=== PATIENT | male | born 1975 | race Caucasian/White ===

== ENCOUNTER 2020-04-22 09:48 | Emergency (ER) | payer MEDICARE, SELFPAY ==
[2020-04-22] VITALS (11 sets, daily range): BP systolic 138–196; BP diastolic 46–93; PULSE 74–114; RESP 16–18; TEMP 37.6–38.2; O2SAT 95–100; BMI 27.0
--- NOTE | 2020-04-22 10:19 | XR_ITS ---
WS: [id number] PORTABLE CHEST HISTORY: dyspnea/cough COMPARISON: None available. Lungs are clear and well expanded. No pleural effusion or pneumothorax. Cardiac size: Normal. Mediastinum/Aorta: Normal mediastinum. No osseous abnormality seen. XR/XR chest 1V portable [id number] IMPRESSION: Unremarkable portable chest.
--- NOTE | 2020-04-22 10:19 | USCV_ITS ---
Rufus Lyman Age: 44 Gender: M : 1975 Exam Date: 04/22/2020 10:23 Ordering Phys: Apolinar Reagan DO Technologist: Cary Kearns Exam Location: [facility] [place]_ Indication: TRANSPLANTED KIDNEY LIES IN RT OF MIDLINE PELVIS Aortic Velocity @ SMA (cm/s) FINDINGS No comparison. Small echogenic cheesh-na kidneys. Transplanted kidney right pelvis is normal size and echogenicity. No hydronephrosis. Good systolic and diastolic velocities. No adjacent fluid collections. CONCLUSIONS No abnormality transplanted kidney by ultrasound. Dr. Tati Mcmillan DO Edited by: CV Knee Bolter (Electronically Signed) Final Date: 22 April 2020 11:43 Amended: 23 April 2020 08:10 C
--- NOTE | 2020-04-22 10:19 | ECG_ITS ---
[facility] Test Date: 2020-04-22 Pat Name: Rufus Lyman Department: Room: Gender: Male [employer]ator [employer]: : 1975 Requested By: Apolinar Nettles Order Number: [id number] Ekaterina MD: Shilo Nj M.D. Measurements Intervals [place] Rate: 107 P: 53 AK: 143 QRS: 58 QRSD: 75 T: 58 QT: 296 QTc: 395 Interpretive Statements SINUS TACHYCARDIA POSSIBLE LEFT ATRIAL ENLARGEMENT [-0.1mV P WAVE IN V1/V2] ABNORMAL RHYTHM ECG No previous ECG available for comparison Electronically Signed On 04-23-2020 16:24:08 CDT by Shilo Nj M.D. [email or web address]
[2020-04-22 10:33] LABS: Basophils # 0.1 10^3/uL (0.0-0.1); Basophils % 0.2 %; Hematocrit 49.4 % (42.0-52.0); Hemoglobin 16.6 g/dL (11.7-16.6); Lymphocytes # 1.2 10^3/uL (0.8-4.8); Lymphocytes % 4.5 %; Mean Corpuscular HGB Conc 33.6 g/dL (30.0-36.0); Mean Corpuscular Hemoglobin 32.5 pg (28.0-34.0); Mean Corpuscular Volume 96.9 fL (80-94); Mean Platelet Volume 11.6 fL (7.4-10.4); Monocytes # 2.3 10^3/uL (0.2-0.9); Monocytes % 8.9 %; Neutrophils # 21.77 10^3/uL (1.8-7.7); Nucleated Red Blood Cells % 0 %; Platelet Count 154 10^3/cmm (130-400); Red Cell Distribution Width 12.9 % (12.1-15.1); White Blood Count 25.6 10^3/uL (4.0-10.0)
[2020-04-22 10:40] LABS: Lactic Sepsis W/Reflex 1.5 mmol/L (0.5-2.2)
[2020-04-22 10:41] LABS: Alanine Aminotransferase 22 U/L (0-41); Albumin Level 4.2 g/dL (3.5-5.2); Alkaline Phosphatase 94 IU/L (40-130); Aspartate Amino Transferase 26 U/L (0-40); Blood Urea Nitrogen 22 mg/dL (6-20); Calcium 9.1 mg/dL (8.5-10.5); Carbon Dioxide 21 mmol/L (22-29); Chloride 97 mmol/L (98-107); Creatine Phosphokinase 74 U/L (39-308); Globulin 3.2 g/dL (1.3-4.6); Glucose 171 mg/dL (65-115); Lipase 25 U/L (13-60); Osmolality Calculated 273 mOsm/kg (285-295); Sodium 131 mmol/L (136-145); Total Bilirubin 1.2 mg/dL (0.15-1.2); Total Protein 7.4 g/dL (6.6-8.7)
--- NOTE | 2020-04-22 10:52 | ED_ITS ---
HPI - Abdominal Pain General: Chief Complaint: Abdominal Pain Stated Complaint: pain post kidney & pancreas transplant Time Seen by Provider: 04/22/20 09:58 History of Present Illness: HPI narrative: 44-year-old male comes in complaining of right lower quadrant pain. He is a renal transplant patient and in his right lower quadrant where his kidney and pancreas are out evidently. He is not noticed any hematuria he has had a couple of episodes of diarrhea. Is not had any antibiotics in the last month he had several episodes of vomiting and he has been running a fever at home this began approximately 3 days ago on Wednesday. Patient denies any respiratory symptoms no known exposure to anybody with COVID that he is aware of. MD elicited complaint: abdominal pain Pertinent past history: other (Previous renal transplant with donor kidney in the right lower quadrant) Onset (ago): day(s) Pain Consistency: constant Location: RLQ Severity: moderate Quality: cramping and stabbing Radiation: RLQ Migration to: no migration Exacerbating factors: movement Relieving factors: nothing Associated Symptoms: Reports no associated symptoms; Denies bloating, chills, coffee ground emesis, constipation, diarrhea, dysuria, fever(s), hematochezia, hematemesis, melena, nausea and vomiting Review of Systems Const: Denies: fever(s), chills, body aches, change in appetite, fatigue or malaise ENMT: Denies: throat pain, ear or mastoid pain, nasal discharge or nasal congestion Card: Denies: chest pain, edema, dyspnea on exertion or orthopnea Resp: Denies: dyspnea, productive cough or non-productive cough GI: Denies: abdominal pain, nausea, vomiting, hematemesis, coffee ground emesis, diarrhea, constipation, bloating, hematochezia or melena : Denies: flank pain, dysuria, urinary frequency or urinary urgency Skin/Breast: Denies: rash or pruritus PFSH ED PFSH: Medical History (Updated 04/23/20 @ 08:54 by Apolinar Reagan DO) Blind Diabetes Fistula Surgical History (Updated 04/22/20 @ 14:32 by Apolinar Reagan DO) History of eye surgery History of kidney transplant History of pancreas transplant Physical Exam Const: COMMON NORMALS: no acute distress GENERAL APPEARANCE: cooperative and comfortable ORIENTATION/CONSCIOUSNESS: Yes awake, Yes oriented to person, Yes oriented to place and Yes oriented to time HENMT: COMMON NORMALS: normocephalic, atraumatic, hearing grossly normal bilat erally, external ears normal, EAC's normal, TM's normal bilaterally, Normal nasal mucous membranes and turbinates present and oropharynx normal HEAD & SCALP: normocephalic and atraumatic NOSE: Normal nasal mucous membranes and turbinates present EXTERNAL EAR: Yes external ears normal EXTERNAL AUDITORY CANAL: EAC's normal TYMPANIC MEMBRANE: TM's normal bilaterally Eye: COMMON NORMALS: Equal, round and reactive pupils present, EOMs intact bilaterally, conjunctivae normal and no scleral icterus CONJUNCTIVA: Yes conjunctivae normal PUPIL: Yes Equal, round and reactive pupils present Neck/C-Spine: COMMON NORMALS: full ROM, no lymphadenopathy, supple and no JVD Lymph: LYMPHATIC: no lymphadenopathy noted and no lymphedema noted Resp: COMMON NORMALS: normal respiratory effort, No retractions, No use of accessory muscles and clear to auscultation bilaterally AUSCULTATION: clear to auscultation bilaterally Cardio: COMMON NORMALS: no JVD, regular rate, regular rhythm and No murmurs present (Cardio) RATE: regular rate RHYTHM: regular rhythm GI: PALPATION: Yes Tenderness to palpation present (GI) Details: RLQ and No Guarding due to palpation present (GI) Extremity: COMMON NORMALS: normal to inspection, capillary refill normal, no clubbing, cyanosis or edema, no calf tenderness and no pedal edema Neuro: SENSORIUM/ORIENTATION: Yes oriented to person, Yes oriented to place and Yes oriented to time Skin: COMMON NORMALS: no rashes or lesions noted GENERAL SKIN EXAM: no rashes or lesions noted Course Vital Signs: Vital signs: Vital Signs Temperature 99.7 F H 04/22/20 19:25 Pulse Rate 114 H 04/22/20 20:25 Respiratory Rate 16 04/22/20 20:25 Blood Pressure 142/46 04/22/20 20:25 Pulse Oximetry 95 04/22/20 20:25 MDM - Abdominal Pain MDM Narrative: Medical decision making narrative: Ultrasound of the kidney is negative patient has exquisite tenderness over the transplant kidney in the right lower quadrant in addition a white count is 25.6 urine shows signs of infection. Believe he does have a pyelonephritis of his donor kidney is temp of 100.8 in addition to all the other factors. I started him on Rocephin cultures have been done have talked with our local hospitalist believe that given his transplant status would be better for him to be transferred back to [facility] for care by the transplant team, I would agree with that assessment. Discussed with the patient he is amenable to being transferred to [facility]. We have called [facility] and discussed with their transplant team they will accept him on transfer. They asked that we continue the Rocephin also asked that we do a CT without contrast to further evaluate. Lab Data: Labs: Lab Results 04/22/20 04/22/20 04/22/20 Range/Units 10:12 10:12 10:12 WBC 25.6 H (4.0-10.0) 10^3/ uL RBC 5.10 (4.1-5.3) 10^6/u L Hgb 16.6 (11.7-16.6) g/dL Hct 49.4 (42.0-52.0) % MCV 96.9 H (80-94) fL MCH 32.5 (28.0-34.0) pg MCHC 33.6 (30.0-36.0) g/dL RDW 12.9 (12.1-15.1) % Plt Count 154 (130-400) 10^3/c mm MPV 11.6 H (7.4-10.4) fL Neut % (Auto) 85.0 % Lymph % (Auto) 4.5 % [place] % (Auto) 8.9 % Eos % (Auto) 0.0 % Baso % (Auto) 0.2 % Neut # (Auto) 21.77 H (1.8-7.7) 10^3/u L Lymph # (Auto) 1.2 (0.8-4.8) 10^3/u L [place] # (Auto) 2.3 H (0.2-0.9) 10^3/u L Eos # (Auto) 0.0 (0.0-0.8) 10^3/u L Baso # (Auto) 0.1 (0.0-0.1) 10^3/u L Nucleated RBC % (a uto) 0 % Nucleated RBCs # 0.0 /100WBC Sodium 131 L (136-145) mmol/L Potassium 4.1 (3.5-5.1) mmol/L Chloride 97 L (98-107) mmol/L Carbon Dioxide 21 L (22-29) mmol/L Anion Gap 17.1 (5-19) BUN 22 H (6-20) mg/dL Creatinine 1.3 H (0.7-1.2) mg/dL GFR Calculation 60.0 L (90-130) mL/min Glucose 171 H (65-115) mg/dL Calculated Osmolal ity 273 L (285-295) mOsm/k g Lactic Acid 1.5 (0.5-2.2) mmol/L Calcium 9.1 (8.5-10.5) mg/dL Total Bilirubin 1.2 (0.15-1.2) mg/dL AST 26 (0-40) U/L ALT 22 (0-41) U/L Alkaline Phosphata se 94 (40-130) IU/L Creatine Kinase 74 (39-308) U/L Total Protein 7.4 (6.6-8.7) g/dL Albumin 4.2 (3.5-5.2) g/dL Globulin 3.2 (1.3-4.6) g/dL Amylase (28-100) U/L Lipase 25 (13-60) U/L Urine Color (Yellow) Urine Appearance (CLEAR) Urine pH (5-7) Ur Specific Gravit y (1.005-1.030) Urine Protein (Negative) Urine Glucose (UA) (Normal) Urine Ketones (Negative) Urine Blood (Negative) Urine Nitrate (Negative) Urine Bilirubin (NEGATIVE) Urine Urobilinogen (Negative) mg/dL Ur Leukocyte Natty ase (Negative) Urine RBC (0-2) /hpf Urine WBC (0-5) /hpf Ur Squamous Epith Cells (0-5) Ur Transition Epit h Cell /hpf Amorphous Sediment Urine Bacteria (NONE) Urine Mucus 04/22/20 04/22/20 Range/Units 10:12 11:55 WBC (4.0-10.0) 10^3/ uL RBC (4.1-5.3) 10^6/u L Hgb (11.7-16.6) g/dL Hct (42.0-52.0) % MCV (80-94) fL MCH (28.0-34.0) pg MCHC (30.0-36.0) g/dL RDW (12.1-15.1) % Plt Count (130-400) 10^3/c mm MPV (7.4-10.4) fL Neut % (Auto) % Lymph % (Auto) % [place] % (Auto) % Eos % (Auto) % Baso % (Auto) % Neut # (Auto) (1.8-7.7) 10^3/u L Lymph # (Auto) (0.8-4.8) 10^3/u L [place] # (Auto) (0.2-0.9) 10^3/u L Eos # (Auto) (0.0-0.8) 10^3/u L Baso # (Auto) (0.0-0.1) 10^3/u L Nucleated RBC % (a uto) % Nucleated RBCs # /100WBC Sodium (136-145) mmol/L Potassium (3.5-5.1) mmol/L Chloride (98-107) mmol/L Carbon Dioxide (22-29) mmol/L Anion Gap (5-19) BUN (6-20) mg/dL Creatinine (0.7-1.2) mg/dL GFR Calculation (90-130) mL/min Glucose (65-115) mg/dL Calculated Osmolal ity (285-295) mOsm/k g Lactic Acid (0.5-2.2) mmol/L Calcium (8.5-10.5) mg/dL Total Bilirubin (0.15-1.2) mg/dL AST (0-40) U/L ALT (0-41) U/L Alkaline Phosphata se (40-130) IU/L Creatine Kinase (39-308) U/L Total Protein (6.6-8.7) g/dL Albumin (3.5-5.2) g/dL Globulin (1.3-4.6) g/dL Amylase 38 (28-100) U/L Lipase (13-60) U/L Urine Color Mariama (Yellow) Urine Appearance Sl cloudy A (CLEAR) Urine pH 5 (5-7) Ur Specific Gravit y 1.020 (1.005-1.030) Urine Protein 1+ H (Negative) Urine Glucose (UA) Norm (Normal) Urine Ketones Negative (Negative) Urine Blood 3+ H (Negative) Urine Nitrate Positive H (Negative) Urine Bilirubin 1+ H (NEGATIVE) Urine Urobilinogen 4 H (Negative) mg/dL Ur Leukocyte Natty ase 1+ H (Negative) Urine RBC 10-15 H (0-2) /hpf Urine WBC 55-80 H (0-5) /hpf Ur Squamous Epith Cells 0-4 H (0-5) Ur Transition Epit h Cell 0-4 /hpf Amorphous Sediment Not Reportable Urine Bacteria 3+ H (NONE) Urine Mucus 2+ Discharge Plan Discharge Patient Disposition: Xfer Other Clinical Impression: Pyelonephritis of transplanted kidney Interventions: ED Discharge Assessment Last Done: 04/22/20 19:25 ED Charges Last Done: 04/22/20 19:25 Discharge Date/Time: 04/22/20 20:27 Coding Level of Care Code ED [employer] Supervisor for Liya Fwd Exam Comprehensive
[2020-04-22 10:56] LABS: Anion Gap 17.1 (5-19)
[2020-04-22 10:57] LABS: Potassium 4.1 mmol/L (3.5-5.1)
[2020-04-22 12:50] LABS: Urine Color Amber (Yellow); pH Urine 5 (5-7)
[2020-04-22 12:51] LABS: Add Urine Microscopic? YES; Bilirubin Urine 1+ (NEGATIVE); Blood Urine 3+ (Negative); Glucose Urine UA Norm (Normal); Ketones Urine Negative (Negative); Leukocyte Esterase Urine 1+ (Negative); Nitrate Urine Positive (Negative); Protein Urine 1+ (Negative); Urobilinogen Urine 4 mg/dL (Negative)
[2020-04-22 12:52] LABS: WBC Urine 55-80 /hpf (0-5)
[2020-04-22 12:53] LABS: Add Urine Culture? Yes; Bacteria Urine 3+; Mucus Urine 2+; Squamous Epithelial Cell Urine 0-4 (0-5); Transitional Epi Cells Urine 0-4 /hpf
--- NOTE | 2020-04-22 14:53 | CT_ITS ---
WS: [id number] CT ABDOMEN AND PELVIS NONCONTRAST HISTORY: abd pain, pain. TECHNIQUE: Imaging performed through the abdomen and pelvis. Coronal and sagittal reformats are submi tted. All CT scans at [facility] use at least one of these dose optimization techniques: automated exposure control; mA and/or kV adjustment per patient size (includes targeted exams where d ose is matched to clinical indication); or iterative reconstruction. DLP: 536.05 mGy.cm COMPARISON: None available. Lower thorax: Lung bases are clear. No hiatal hernia. Liver: Normal size liver with mild hepatic steatosis. No bile duct dilatation. Gallbladder: Negative gallbladder, slightly limited evaluation secondary to motion. Pancreas: Atrophied pancreas. No abnormality. Spleen: Normal. Adrenal glands: Normal. Right kidney: Marked atrophy. Left kidney: Marked atrophy. Moderate atherosclerosis aorta with no aneurysm. There is a single focus of air in the RIGHT abdomen, image 29 of series [address] that [address] within the lumen of the GI tract. GI tract: Mild fluid distention of the colon, greatest involving the RIGHT colon. Abdominal wall: Intact. Pelvis: No free fluid. There is a pelvic kidney on the RIGHT that is not obstructed. No adjacent infl ammation. Osseous structures: Unremarkable. Notified Apolinar Reagan DO at 04/22/2020 4:[address]/CT abdomen pelvis wo con [id number] IMPRESSION: 1. Single focus of air in the RIGHT abdomen is not definitely within the GI tr act. Possibility of visceral perforation should be considered. 2. Fluid distention of the RIGHT colon no wall thickening or obstruction. 3. RIGHT pelvic kidney with no obstruction. 4. Tiny amount of free fluid adjacent to the transplanted kidney. 5. Bilateral severe renal atrophy.
[2020-04-22] MEDS: cefTRIAXone 1,000 MG in sodium chloride 0.9% (plus) 50 ML 100 MG IV (15:20)
[2020-04-22] MEDS: sodium chloride 0.9% 1,000 ML 999 ML IV (15:21)
[2020-04-22] MEDS: ondansetron 2 mg/ML SDV 2 mL 4 MG IVP (15:47)
[2020-04-22 16:54] LABS: Amylase 38 U/L (28-100)
[2020-04-22] MEDS: sodium chloride 0.9% 1,000 ML 125 ML IV (16:55)
== END 2020-04-22 20:27 | disposition other institution (70) ==
PROVIDERS: Emergency Provider Family Medicine
DX: N12 Tubulo-interstitial nephritis, not specified as acute or chronic (principal); Z94.0 Kidney transplant status; E11.9 Type 2 diabetes mellitus without complications; Z94.83 Pancreas transplant status; R10.31 Right lower quadrant pain
CPT/HCPCS: 12345; 71045; 74176; 80053; 81001; 81003; 82150; 82550; 83605; 83690; 85025; 87040; 87077; 87086; 87186; 87205; 93005; 93975; 96361; 96365; 96375; 99284; J0696; J2405; J7030